=== PATIENT | male | born 1990 | race Two or more races ===

== ENCOUNTER 2023-06-24 10:17 | Outpatient (CLI) | payer OTHER ==
[2023-06-24 12:20] LABS: ALBUMIN 3.9 gm/dL (3.4-5.0); BILIRUBIN TOTAL 1.03 mg/dL (0.3-1.2); CALCIUM 8.9 mg/dL (8.5-10.1); CHOL HDL RATIO 3.8 (0-5.0); CREATININE SERUM 1.01 mg/dL (0.70-1.30); GFR 85.07; GLOBULINA 3.6 G/DL (2.4-3.5); POTASSIUM 4.42 mEq/L (3.5-5.1); T4 FREE 1.32 NG/ML (0.76-1.46); TOTAL PROTEIN 7.5 gm/dL (6.4-8.2); TSH 4.52 uIU/mL (0.358-3.74)
== END 2023-06-24 10:30 | disposition home or self-care (01) ==
LOC: LAB 10:17
DX: E06.3 Autoimmune thyroiditis (principal); E78.9 Disorder of lipoprotein metabolism, unspecified; Z00.01 Encounter for general adult medical examination with abnormal findings

== ENCOUNTER 2024-12-06 16:08 | Emergency (ER) | payer OTHER ==
[~2024-12-06] VITALS: Ht 172.7 cm; Wt 104.3 kg
[2024-12-06] MEDS ORDERED: LEVO-T125 MCG PO (17:01)
[2024-12-06] MEDS ORDERED: FAMOTIDINE/PF 20 MG/2 ML VIAL ONE (19:12)
[2024-12-06] MEDS ORDERED: FAMOTIDINE/PF 20 MG/2 ML VIAL IV PUSH STA (19:12)
[2024-12-06 19:29] LABS: BASO % 0.2 % (0.1-1.2); EOS # 0.12 (0.04-0.54); EOS % 1.4 % (0.7-7.0); LYMPH # 1.76 (1.18-3.74); LYMPH % 20.5 % (19.3-53.1); MEAN PLATELET VOLUME 10.00 fl (9.4-12.4); MONO # 0.58 (0.24-0.82); MONO % 6.7 % (4.7-12.5); NEUT # 6.09 (1.56-6.13); NEUT % 70.9 % (34.0-71.1); RED CELL DISTRIBUTION WIDTH 12.0 % (11.6-14.4)
== END 2024-12-06 20:54 | disposition home or self-care (01) ==
LOC: ER 16:08
PROVIDERS: General Practice
DX: M94.0 Chondrocostal junction syndrome [Tietze] (principal); R07.89 Other chest pain; R00.2 Palpitations

== ENCOUNTER 2024-12-16 09:01 | Outpatient (CLI) | payer OTHER ==
[~2024-12-16 09:01] MED LIST: LEVO-T125 MCG PO
== END 2024-12-16 09:02 | disposition home or self-care (01) ==
LOC: SONOGRAMA 09:01
DX: E04.1 Nontoxic single thyroid nodule (principal)